=== PATIENT | male | born 1950 | race Caucasian/White ===

== ENCOUNTER 2021-08-27 11:26 | Inpatient (IN) | payer MEDICARE ==
[~2021-08-27] VITALS: Ht 177.8 cm; Wt 90.0 kg
--- NOTE | 2021-08-27 11:26 | NUR ---
PT BROUGHT OVER FROM IV THERAPY WITH LOW SATS IN THE MID 80'S BY THIS NURSE TO ER BED 16 AT THIS TIME. KRISTIN RN AND BRANDON RN BOTH NOTIFIED OF PT STATUS.
[2021-08-27 12:53] LABS: HEMATOCRIT 53.8 % (39.0-50.0); HEMOGLOBIN 17.5 g/dl (14.0-18.0); MEAN CELL VOLUME 91.7 fL CALC (80.0-100.0); MEAN CORPUSCULAR HGB 29.8 pG CALC (26.0-32.0); MEAN CORPUSCULAR HGB CONC 32.5 g/dL CAL (32.0-36.0); NEUT# 4.65 thou/uL (1.82-7.42); RED BLOOD COUNT 5.87 mill/uL (4.70-6.10); RED CELL DISTRI WIDTH 13.4 % (11.5-15.5)
[2021-08-27 13:05] LABS: D-DIMER 0.88 mg/L (0.19-0.60)
[2021-08-27 13:08] LABS: ALBUMIN 3.8 g/dL (3.2-5.0); ALKALINE PHOSPHATASE 99 u/l (38-126); ANION GAP 18 (6-22 (CALC)); BILIRUBIN, TOTAL 0.5 mg/dL (0.0-1.4); BUN 41 mg/dL (8-23); BUN/CREATININE RATIO 35 (12-20 (CALC)); CARBON DIOXIDE 23 mmol/l (22-30); CHLORIDE 99 mmol/l (95-108); CREATININE 1.2 mg/dL (0.7-1.3); GFR 60 ML/MIN (>=60 (CALC)); GFR FOR AFR.AMER. > 60 ML/MIN (>=60 (CALC)); LIPASE 52 u/l (23-300); MAGNESIUM 1.5 mg/dL (1.6-2.3); POTASSIUM 4.5 mmol/l (3.5-5.1); SGOT/AST 69 u/l (19-48); SODIUM 135 mmol/l (137-146); TOTAL PROTEIN 7.1 g/dL (6.3-8.2)
[2021-08-27 13:10] LABS: ACT PARTIAL THROMBO TIME 27.2 SECONDS (20.0-32.5); PROTHROMBIN TIME 10.5 SECONDS (9.0-12.5)
--- NOTE | 2021-08-27 13:10 | NUR ---
Reassessment of patient completed. No distress noted.
[2021-08-27 13:22] LABS: C-REACTIVE PROTEIN 14.9 mg/dL (0-0.9)
--- NOTE | 2021-08-27 15:21 | NUR ---
NURSING PACKAGE HANDLER CURRENTLY BEDSIDE WITH PATIENT. FOURTH PERSON ATTEMPTING TO PLACE IV CATH FOR CTA.
--- NOTE | 2021-08-27 15:48 | NUR ---
PT PLACED ON 6LPM HFNC PER PT SPO2 AND PO2. PT JOSE MANUEL WELLAT THIS TIME. CARDIOPULMONARY TECHNOLOGIST CHIEF TO MONITOR.
--- NOTE | 2021-08-27 16:12 | NUR ---
REPORT GIVEN TO SALON RECEPTIONIST
[2021-08-27 16:54] LABS: URINE BILIRUBIN - DIPSTICK NEGATIVE (NEGATIVE); URINE BLOOD DIPSTICK NEGATIVE (NEGATIVE); URINE COLOR YELLOW; URINE GLUCOSE - DIPSTICK >=1000 mg/dL (NEGATIVE); URINE KETONE 15 mg/dL (NEGATIVE); URINE LEUK ESTERASE NEGATIVE (NEGATIVE); URINE PH 5.5 (4.5-8.0); URINE PROTEIN - DIPSTICK TRACE mg/dL (NEG-TRACE); URINE SPECIFIC GRAVITY 1.025; URINE UROBILINOGEN - DIPSTICK 0.2 E.U./dL (0.2)
[2021-08-27 16:55] LABS: URINE NITRITE - DIPSTICK NEGATIVE (Negative)
[2021-08-27 17:00] VITALS: BP 152/66
--- NOTE | 2021-08-27 17:00 | NUR ---
patient is a new admit from ER, report was taken from lux morrow. he is a/o x3, able to make needs known to staff. denies pain at this time. 3mm perrla brisk bilateral eyes. dentures top and bottom are in. hard of hearing. normal heart sounds. clear top and slightly bottom diminished lung sounds. distended soft non tender abdomen. active bowel sounds. had a large soft bowel movement when transferred into this room from ER. no edema present at this time. strong equal hand shopping investigator. no arm or leg drifts. strong pulses. stable on his feet when ambulating to the bathroom. on isolation precautions. vital signs are stable. continues to be on 6L hfnc. safety measures in place. call light in reach. will continue to monitor per hospital's policy.
--- NOTE | 2021-08-27 18:43 | NUR ---
PATIENT IS EATING DINNER AT THIS TIME WATCHING A FOOTBALL GAME.
--- NOTE | 2021-08-27 18:50 | NUR ---
SAUL RECEIVED FROM REBECCA SCHULZ.
[2021-08-27 19:29] VITALS: BP 134/73
--- NOTE | 2021-08-27 19:35 | NUR ---
ASSESSMENT COMPLETE. PATIENT RESTING QUIETLY IN BED. VSS. NO DISTRESS NOTED. DENIES PAIN AT THIS TIME BUT VERBALIZES FEELING NAUSEATED. IV ROCEPHIN COMPLETE, SITE FLUSHED; PATENT. BED IN LOW POSITION, LOCKED. CALL LIGHT WITHIN REACH. INSTRUCTED TO CALL FOR ASSISTANCE.
--- NOTE | 2021-08-27 22:59 | NUR ---
MAGNESIUM INFUSION COMPLETE. PATIENT RESTING QUIETLY. NO CONCERNS EXPRESSED AT THIS TIME CALL LIGHT WITHIN REACH.
[2021-08-28] VITALS (10 sets, daily range): BP systolic 96–136; BP diastolic 47–69
--- NOTE | 2021-08-28 02:15 | NUR ---
SATURATION DOWN TO 83% ON 6L/NC. OXYGEN INCREASED TO 8L/NC, SATURATION JESSICA TO 91%. NO SIGNS OF DISTRESS NOTED. PATIENT RESTING QUIETLY IN BED EYES CLOSED. WILL CONTINUE TO MONITOR.
--- NOTE | 2021-08-28 04:35 | NUR ---
PATIENT CONTINUES TO REST, SATURATION 88% ON 8L. NO DISTRESS NOTED. VSS. DENIES PAIN AT THIS TIME. CALL LIGHT WITHIN REACH.
[2021-08-28 05:02] LABS: HEMATOCRIT 49.8 % (39.0-50.0); HEMOGLOBIN 16.3 g/dl (14.0-18.0); IMMATURE GRANULOCYTES 0.4 % (0.0-5.0); MEAN CELL VOLUME 91.4 fL CALC (80.0-100.0); MEAN CORPUSCULAR HGB 29.9 pG CALC (26.0-32.0); MEAN CORPUSCULAR HGB CONC 32.7 g/dL CAL (32.0-36.0); NEUT# 3.91 thou/uL (1.82-7.42); RED BLOOD COUNT 5.45 mill/uL (4.70-6.10); RED CELL DISTRI WIDTH 13.5 % (11.5-15.5)
[2021-08-28 05:26] LABS: ALBUMIN 3.3 g/dL (3.2-5.0); ALKALINE PHOSPHATASE 70 u/l (38-126); BILIRUBIN, TOTAL 0.6 mg/dL (0.0-1.4); BUN 40 mg/dL (8-23); BUN/CREATININE RATIO 42 (12-20 (CALC)); C-REACTIVE PROTEIN 7.8 mg/dL (0-0.9); CARBON DIOXIDE 22 mmol/l (22-30); CHLORIDE 104 mmol/l (95-108); GFR > 60 ML/MIN (>=60 (CALC)); GFR FOR AFR.AMER. > 60 ML/MIN (>=60 (CALC)); SGOT/AST 75 u/l (19-48); SODIUM 135 mmol/l (137-146); TOTAL PROTEIN 6.5 g/dL (6.3-8.2)
[2021-08-28 05:29] LABS: ANION GAP 15 (6-22 (CALC)); POTASSIUM 5.6 mmol/l (3.5-5.1)
--- NOTE | 2021-08-28 07:00 | NUR ---
ASSUMED CARE OF PT FROM REBECCA KANG. NO S/S OF DISTRESS NOTED, VSS.
--- NOTE | 2021-08-28 07:25 | NUR ---
PROVIDED BREAKFAST TRAY, MEDICATED PER EMAR, DENIES ANY CURRENT NEEDS. NO S/S OF DISTRESS NOTED
--- NOTE | 2021-08-28 09:24 | NUR ---
ROUNDING AT BEDSIDE
[2021-08-28] MEDS ORDERED: METFORMIN HCL1000 MG PO (10:14)
[2021-08-28] MEDS ORDERED: FISH OIL1000 MG PO (10:14)
[2021-08-28] MEDS ORDERED: KAPSPARGO SPRI100 MG PO (10:15)
[2021-08-28] MEDS ORDERED: LIPITOR40 M1 PO (10:16)
[2021-08-28] MEDS ORDERED: TAMSULOSIN HCL0.4 MG PO (10:16)
[2021-08-28] MEDS ORDERED: JARDIANCE10 MG PO (10:18)
[2021-08-28] MEDS ORDERED: ENTRESTO 49-511 TAB PO (10:18)
[2021-08-28] MEDS ORDERED: HYDRO PO (10:21)
[2021-08-28] MEDS ORDERED: SPIRONOLACTONE PO (10:21)
[2021-08-28] MEDS ORDERED: PRESERVISION AREDS 2 PO (10:25)
[2021-08-28] MEDS ORDERED: ASPIRIN81 MG PO (10:26)
[2021-08-28] MEDS ORDERED: NOVOLOG FL100 UNIT/M (10:28)
[2021-08-28] MEDS ORDERED: LATANOPROST0.005 % OU (10:28)
--- NOTE | 2021-08-28 11:20 | NUR ---
PROVIDED LUNCH TRAY, MEDICATED PER EMAR, NO S/S OF DISTRESS NOTED, DENIES ANY CURRENT NEEDS
--- NOTE | 2021-08-28 13:00 | NUR ---
PT RESTING IN BED, DENIES NEEDS, NO S/S OF DISTRESS NOTED
--- NOTE | 2021-08-28 15:00 | NUR ---
DENIES NEEDS, NO S/S OF DISTRESS NOTED
--- NOTE | 2021-08-28 17:20 | NUR ---
DINNER TRAY PROVIDED, PT SITTING ON SIDE OF BED, MEDICATED PER EMAR, DENIES ANY NEEDS
--- NOTE | 2021-08-28 19:10 | NUR ---
SBAR REPORT RECEIVED FROM REBECCA FAITH. PATIENT AWAKE IN BED PLAYING ON PHONE. BED IN LOW POSITION, LOCKED. CALL LIGHT WITHIN REACH.
--- NOTE | 2021-08-28 21:01 | NUR ---
ASSESSMENT COMPLETE. VSS. SATURATION IN MID 80'S ON 8L/NC HIGH FLOW. PATIENT PROVIDED INCENTIVE SPIROMETRY AND GIVEN VERBAL INSTRUCTION ON USE. PATIENT DEMONSTRATE USE OF EQUIPMENT. NO DISTRESS NOTED. PATIENT VERBALIZES HE FEELS FINE AND IS NOT SHORT WINDED. REPOSITIONED IN BED TO LEFT SIDE TO FACILITATE BREATHING. NO C/O PAIN AT THIS TIME. BED IN LOW POSITION, LOCKED. CALL LIGHT WITHIN REACH, INSTRUCTED TO CALL FOR ASSISTANCE.
--- NOTE | 2021-08-28 21:36 | NUR ---
PATIENT LYING IN BED SATURATION DROPS TO 84%, OXYGEN INCREASED TO 9L/NC. WILL CONTINUE TO MONITOR.
--- NOTE | 2021-08-28 21:49 | NUR ---
SATURATION REMAINS 83-84%. OXYGEN INCREASED TO 10L/NC, SATURATION JESSICA TO 86%. NO DISTRESS NOTED. PATIENT DENIES FEELING SHORT OF BREATH AT THIS TIME. WILL CONTINUE TO MONITOR. CALL LIGHT WITHIN REACH.
[2021-08-29] VITALS (17 sets, daily range): BP systolic 103–143; BP diastolic 46–86
--- NOTE | 2021-08-29 00:16 | NUR ---
SATURATION REMAINS LOW TO MID 80'S. RESPIRATORY THERAPIST AT BEDSIDE. REQUEST FOR PATIENT TO LAY PRONE, PATIENT STATES HE DOESN'T TOLERATED LAYING ON BELLY WELL BUT WILL TRY. OXYGEN INCREASED TO 14L/NC, SATURATION SLOWLY JESSICA TO 90%. PATIENT STATES HE IS OKAY IN THE PRONE POSITION FOR NOW. NO DISTRESS NOTED. CALL LIGHT WITHIN REACH, WILL CONTINUE TO MONITOR.
[2021-08-29 05:10] LABS: HEMATOCRIT 54.4 % (39.0-50.0); HEMOGLOBIN 16.9 g/dl (14.0-18.0); IMMATURE GRANULOCYTES 0.4 % (0.0-5.0); MEAN CELL VOLUME 96.5 fL CALC (80.0-100.0); MEAN CORPUSCULAR HGB CONC 31.1 g/dL CAL (32.0-36.0); NEUT# 8.05 thou/uL (1.82-7.42); RED BLOOD COUNT 5.64 mill/uL (4.70-6.10); RED CELL DISTRI WIDTH 13.5 % (11.5-15.5)
--- NOTE | 2021-08-29 05:33 | NUR ---
RESTING IN BED, PRONE POSITION. SATURATION 89% ON 15L/NC HIGH FLOW.
[2021-08-29 05:58] LABS: ALBUMIN 3.3 g/dL (3.2-5.0); ALKALINE PHOSPHATASE 89 u/l (38-126); ANION GAP 13 (6-22 (CALC)); BILIRUBIN, TOTAL 0.5 mg/dL (0.0-1.4); BUN 42 mg/dL (8-23); BUN/CREATININE RATIO 46 (12-20 (CALC)); CARBON DIOXIDE 24 mmol/l (22-30); CHLORIDE 109 mmol/l (95-108); CREATININE 0.9 mg/dL (0.7-1.3); GFR > 60 ML/MIN (>=60 (CALC)); GFR FOR AFR.AMER. > 60 ML/MIN (>=60 (CALC)); POTASSIUM 4.7 mmol/l (3.5-5.1); SGOT/AST 57 u/l (19-48); SODIUM 141 mmol/l (137-146); TOTAL PROTEIN 6.6 g/dL (6.3-8.2)
--- NOTE | 2021-08-29 06:45 | NUR ---
ASSUMED CARE OF PT FROM REBECCA KANG. PT RESITNG IN BED ON 15L HI FLOW NC, NO S/S OF DISTRESS NOTED.
--- NOTE | 2021-08-29 07:50 | NUR ---
RT AT BEDSIDE PLACING PT ON VAPOTHERM. PT UNABLE TO MAINTAIN SATS ABOVE 85% WITH ANY MOVEMENT.
--- NOTE | 2021-08-29 09:30 | NUR ---
MD AT BEDSIDE ROUNDING
--- NOTE | 2021-08-29 09:40 | NUR ---
ASSISTED PT OOB TO RECLINER. LINENS CHANGED, PT ENCOURAGED TO USE I.S. AT LEAST HOURLY. NO S/S OF DISTRESS NOTED, DENIE ANY CURRENT NEEDS
--- NOTE | 2021-08-29 11:37 | NUR ---
PT RESING IN RECLINER, USING I.S. OFTEN, VAPOTHERM AT 35L, NO S/S OF DISTRESS NOTED. PT SPO2 READINGS BETWEEN 88%-92%.
--- NOTE | 2021-08-29 13:50 | NUR ---
PT ASSISTED BACK TO BED AND IS PRONING. NO S/S OF DISTRESS NOTED, DENIES NEEDS
--- NOTE | 2021-08-29 16:20 | NUR ---
SIA COMPLETED. SPOKE WITH PT ABOUT HIS ANXIETY FOR HIS WIFES CONDITION, WHO IS ALSO POSITIVE FOR COVID. ENCOURAGED HIM TO FOCUS ON HIS WELL BEING TO BE ABLE TO GO HOME TO HER.
--- NOTE | 2021-08-29 19:31 | NUR ---
awake. no acute resp diff. desats with ANY exert. o2 cont per vapotherm. groundwater monitoring technician shows sinus rhythm occas pvcs hr 72. #20 lac & #22 rt hand saline locks. po fluids taken well. voids per urinal. fall & air/contact precautions cont. spoke to pt @ length about prone position.
--- NOTE | 2021-08-29 21:15 | NUR ---
assisted to prone position.
[2021-08-30] VITALS (24 sets, daily range): BP systolic 83–159; BP diastolic 41–74
--- NOTE | 2021-08-30 00:30 | NUR ---
stood to void. conts to desat to the 70's with exert. o2 cont.
--- NOTE | 2021-08-30 04:20 | NUR ---
lab here. blood drawn.
[2021-08-30 06:14] LABS: HEMATOCRIT 54.6 % (39.0-50.0); HEMOGLOBIN 17.1 g/dl (14.0-18.0); IMMATURE GRANULOCYTES 0.5 % (0.0-5.0); MEAN CELL VOLUME 95.1 fL CALC (80.0-100.0); MEAN CORPUSCULAR HGB 29.8 pG CALC (26.0-32.0); MEAN CORPUSCULAR HGB CONC 31.3 g/dL CAL (32.0-36.0); NEUT# 8.15 thou/uL (1.82-7.42); RED BLOOD COUNT 5.74 mill/uL (4.70-6.10); RED CELL DISTRI WIDTH 13.5 % (11.5-15.5)
[2021-08-30 06:14] LABS: ALBUMIN 3.2 g/dL (3.2-5.0); ALKALINE PHOSPHATASE 97 u/l (38-126); ANION GAP 15 (6-22 (CALC)); BILIRUBIN, TOTAL 0.5 mg/dL (0.0-1.4); BUN 31 mg/dL (8-23); BUN/CREATININE RATIO 41 (12-20 (CALC)); C-REACTIVE PROTEIN 8.6 mg/dL (0-0.9); CARBON DIOXIDE 23 mmol/l (22-30); CHLORIDE 107 mmol/l (95-108); CREATININE 0.8 mg/dL (0.7-1.3); GFR > 60 ML/MIN (>=60 (CALC)); GFR FOR AFR.AMER. > 60 ML/MIN (>=60 (CALC)); POTASSIUM 4.6 mmol/l (3.5-5.1); SGOT/AST 52 u/l (19-48); SODIUM 141 mmol/l (137-146); TOTAL PROTEIN 6.2 g/dL (6.3-8.2)
--- NOTE | 2021-08-30 06:25 | NUR ---
sitting in chair. pulse ox 88%.
--- NOTE | 2021-08-30 07:00 | NUR ---
ASSUMED CARE OF PT FROM ISMAEL REYNA. PT OOB IN CHAIR, NO S/S OF DISTRESS NOTED.
--- NOTE | 2021-08-30 07:46 | NUR ---
PT SON IN LOBBY REQUESTING PT TRANSFER. RELAYED I WILL HAVE MD CALL HIM DURING ROUNDS.
--- NOTE | 2021-08-30 08:00 | NUR ---
SPOKE WITH SON ON PHONE, GAVE HIM A PT UPDATE, AND ASSURED HIM THAT THE PT WAS RECEIVING ALL THE PROPER AND NECESSARY CARE. ASSURED HIM I WILL PASS ON ALL PT CARE CONCERNS. RE ENFORCED MD WILL CALL HIM DURING ROUNDS.
--- NOTE | 2021-08-30 09:35 | NUR ---
MD AT BEDSIDE ROUNDS
--- NOTE | 2021-08-30 09:49 | NUR ---
CALLED SON FOR MD TO SPEAK TO.
--- NOTE | 2021-08-30 11:07 | NUR ---
PT RESTING IN BED, NO S/S OF DISTRESS NOTED
--- NOTE | 2021-08-30 14:06 | NUR ---
ASSISTED PT WITH COMPLETE BED BATH, SHAVE, AND ORAL CARE. LINENS AND GOWN, AND SOCKS CHANGED.
--- NOTE | 2021-08-30 14:58 | NUR ---
UPDATED SON VIA PHONE.
--- NOTE | 2021-08-30 16:00 | NUR ---
PT RESTING IN BED, NO S/S OF DISTRESS NOTED.
--- NOTE | 2021-08-30 17:30 | NUR ---
PT EATING DINNER, SITTING BEDSIDE. DENIES NEEDS
--- NOTE | 2021-08-30 18:23 | NUR ---
UPDATED SON VIA PHONE
--- NOTE | 2021-08-30 19:00 | NUR ---
REPORT RECEIVED FROM Kareem IVORY RN, CARE OF PT ASSUMED AT THIS TIME.
--- NOTE | 2021-08-30 20:33 | NUR ---
CALL RECEIVED FROM PTS SON. UPDATE ON PTS STATUS PROVIDED.
--- NOTE | 2021-08-30 20:50 | NUR ---
PT POSITIONS PRONE, SPO2 90%.
--- NOTE | 2021-08-30 23:37 | NUR ---
CALL RECEIVED FROM PTS SON. UPDATE ON PTS STATUS PROVIDED.
[2021-08-31] VITALS (22 sets, daily range): BP systolic 102–157; BP diastolic 41–70
--- NOTE | 2021-08-31 00:36 | NUR ---
PT'S SPO2 DROPS WHILE SLEEPING. FIO2 INCREASED TO 90% HUMIDIFIED AT 40L/M ON VAPOTHERM BY Pedro KERR RRT. SPO2 89%. PT IN NO DISTRESS. TOLERATIONG SPO2 AT CURRENT LEVEL.
--- NOTE | 2021-08-31 03:37 | NUR ---
CALL RECEIVED FROM PT'S SON. REPORTS PT CALLED HIM AND EXPRESS CONCERNS OVER INCREASE IN FIO2 ON VAPOTHERM. ALLOWED TIME FOR PT'S SON TO EXPRESS CONCERNS. EDUCATION VERBALLY PROVIDED. QUESTIONS ANSWERED. WENT IN TO SPEAK WITH PT REGARDING HIS CONCERNS. ALLOWED TIME FOR EXPRESSION OF CONCERNS. VERBAL EDUCATION AND REASSURANCE PROVIDED. QUESTIONS ANSWERED. PT ENCOURAGED TO VERBALIZE QUESTIONS OR CONCERNS ANY TIME. PT AGREES. DENIES FURTHE NEEDS AT THIS TIME.
--- NOTE | 2021-08-31 04:27 | NUR ---
Sobia MINOR NEWS BROADCASTER IN ROOM TO COLLECT AM LABS.
[2021-08-31 06:08] LABS: HEMATOCRIT 49.1 % (39.0-50.0); HEMOGLOBIN 16.2 g/dl (14.0-18.0); MEAN CELL VOLUME 91.1 fL CALC (80.0-100.0); MEAN CORPUSCULAR HGB 30.1 pG CALC (26.0-32.0); RED BLOOD COUNT 5.39 mill/uL (4.70-6.10); RED CELL DISTRI WIDTH 13.4 % (11.5-15.5)
[2021-08-31 06:25] LABS: ALBUMIN 3.1 g/dL (3.2-5.0); ALKALINE PHOSPHATASE 102 u/l (38-126); ANION GAP 15 (6-22 (CALC)); BILIRUBIN, TOTAL 0.7 mg/dL (0.0-1.4); BUN 30 mg/dL (8-23); BUN/CREATININE RATIO 40 (12-20 (CALC)); CARBON DIOXIDE 23 mmol/l (22-30); CHLORIDE 107 mmol/l (95-108); CREATININE 0.7 mg/dL (0.7-1.3); GFR > 60 ML/MIN (>=60 (CALC)); GFR FOR AFR.AMER. > 60 ML/MIN (>=60 (CALC)); MAGNESIUM 1.8 mg/dL (1.6-2.3); POTASSIUM 4.8 mmol/l (3.5-5.1); SGOT/AST 40 u/l (19-48); SODIUM 141 mmol/l (137-146); TOTAL PROTEIN 6.1 g/dL (6.3-8.2)
--- NOTE | 2021-08-31 07:00 | NUR ---
ASSUMED CARE OF PT. NO S/S OF DISTRESS NOTED.
--- NOTE | 2021-08-31 08:08 | NUR ---
UPDATED PT SON VIA PHONE
--- NOTE | 2021-08-31 09:00 | NUR ---
ROUNDING AT BEDSIDE
--- NOTE | 2021-08-31 09:40 | NUR ---
MALLORY CATH PLACED PER MD ORDER, PT HAVING DYSPNEA ON EXERTION. PT THEN PLACED IN PRONE POSITION. TOLERATING PRONING WELL
--- NOTE | 2021-08-31 10:28 | NUR ---
UPDATED SON VIA PHONE
--- NOTE | 2021-08-31 12:54 | NUR ---
UPDATED SON VIA PHONE
--- NOTE | 2021-08-31 13:30 | NUR ---
PT PLACED IN PRONE POSTION. NO S/S OF DISTRESS NOTED, DENIES NEEDS, TOLERATING WELL
--- NOTE | 2021-08-31 15:14 | NUR ---
PT STILL IN PRONE POSTION, DENIES NEEDS
--- NOTE | 2021-08-31 15:28 | NUR ---
UPDATED SON VIA PHONE
--- NOTE | 2021-08-31 19:50 | NUR ---
SBAR RECEIVED FROM REBECCA FAITH.
--- NOTE | 2021-08-31 20:20 | NUR ---
ASSESSMENT COMPLETE. PATIENT RESTING COMFORTABLY. NO DISTRESS NOTED. DENIES PAIN AT THIS TIME. SATURATION 84% ON VAPOTHERM 40L @ 90%. BED IN LOW POSITION, LOCKED. CALL LIGHT WITHIN REACH. INSTRUCTED TO CALL FOR ASSISTANCE.
--- NOTE | 2021-08-31 21:00 | NUR ---
PM MEDS GIVEN, TOLERATED WELL. PATIENT ASSISTED TO PRONE POSITION FOR SLEEP, TOLERATING WELL. SATURATION 86-87%, PATIENT DOES NOT DISPLAY SIGNS OF DIFFICULTY BREATHING. NO DISTRESS NOTED. CALL LIGHT WITHIN REACH.
[2021-09-01] VITALS (15 sets, daily range): BP systolic 121–152; BP diastolic 45–68
--- NOTE | 2021-09-01 00:26 | NUR ---
PATIENT RESTING QUIELTY. PATIENT STATES HE'S CHILLY, WARM BLANKET GIVEN FOR COMFORT. DENIES PAIN AT THIS TIME. SATURATION 87% ON VAPOTHERM 40L @ 90%. NO DISTRESS NOTED. NO FURTHER CONCERNS EXPRESSED AT THIS TIME. CALL LIGHT WITHIN REACH, INSTRUCTED TO CALL FOR ASSISTANCE.
--- NOTE | 2021-09-01 04:55 | NUR ---
PATIENT RESTING QUIETLY EYES CLOSED. CALL LIGHT WITHIN REACH.
[2021-09-01 05:44] LABS: HEMATOCRIT 48.7 % (39.0-50.0); HEMOGLOBIN 15.9 g/dl (14.0-18.0); IMMATURE GRANULOCYTES 1.4 % (0.0-5.0); MEAN CELL VOLUME 91.4 fL CALC (80.0-100.0); MEAN CORPUSCULAR HGB 29.8 pG CALC (26.0-32.0); MEAN CORPUSCULAR HGB CONC 32.6 g/dL CAL (32.0-36.0); NEUT# 11.4 thou/uL (1.82-7.42); RED BLOOD COUNT 5.33 mill/uL (4.70-6.10); RED CELL DISTRI WIDTH 13.5 % (11.5-15.5)
[2021-09-01 06:10] LABS: ALBUMIN 2.8 g/dL (3.2-5.0); ALKALINE PHOSPHATASE 102 u/l (38-126); BILIRUBIN, TOTAL 0.6 mg/dL (0.0-1.4); BUN 35 mg/dL (8-23); BUN/CREATININE RATIO 43 (12-20 (CALC)); C-REACTIVE PROTEIN 6.8 mg/dL (0-0.9); CHLORIDE 108 mmol/l (95-108); CREATININE 0.8 mg/dL (0.7-1.3); GFR > 60 ML/MIN (>=60 (CALC)); GFR FOR AFR.AMER. > 60 ML/MIN (>=60 (CALC)); POTASSIUM 4.4 mmol/l (3.5-5.1); SGOT/AST 28 u/l (19-48); SODIUM 141 mmol/l (137-146); TOTAL PROTEIN 5.7 g/dL (6.3-8.2)
[2021-09-01 06:11] LABS: ANION GAP 9 (6-22 (CALC)); CARBON DIOXIDE 28 mmol/l (22-30)
--- NOTE | 2021-09-01 06:22 | NUR ---
pt asleep in bed, laying on side, facing window. no acute distress noted. CPoX signal weak at this time. device processing engineer to monitor.
--- NOTE | 2021-09-01 07:33 | NUR ---
PT REPORT RECEIVED, PT RESTING QUIETLY ON STRETCHER, CALL LIGHT WITHIN REACH. HEART RATE DROPS IN THE 40'S WITH MOVEMENT, BUT BOUNCES BACK UP IN SECONDS.
--- NOTE | 2021-09-01 09:05 | NUR ---
REQUESTING A NON REBREATHER FOR SATS STAYING IN THE MID 80'S
--- NOTE | 2021-09-01 09:22 | NUR ---
DR. ZAVALA SPEAKING WITH SON ABOUT PTS CONDITION.
--- NOTE | 2021-09-01 11:00 | NUR ---
no changes at this time c hhfnc paramters. pt wendy well currently c 100% nrb and documented hhfnc settings. nad. polishing wheel setter to monitor. pt resting comfortably in bed, laying flat c hob elevated.
--- NOTE | 2021-09-01 12:52 | NUR ---
PHYSICAL THERAPY DONE WITH PT. PT HANDLED SITTING ON SIDE OF BED WELL WITHOUT SATS DROPPING PAST 90. AT THIS TIME, PT LAYING ON SIDE IN BED PLAYING ON PHONE, NON REBREATHER AND VAPOTHERM AT 40 PER DOCTOR
--- NOTE | 2021-09-01 16:00 | NUR ---
no changes at this time. cnc supervisor to monitor.
--- NOTE | 2021-09-01 17:31 | NUR ---
PT RESTING QUIETLY ON STRETCHER IN UPRIGHT POSITION WITH VAPOTHERM AT 40L@90% WITH NON REBREATHER PER DR. ZAVALA REQUEST SATS IN THE 90'S. NO COMPLAINTS AT THIS TIME, HAS BEEN ON FACEBOOK MOST OF THE DAY OR WATCHING TV. HAS PRONED OFF AND ON DURING DAY.
--- NOTE | 2021-09-01 18:55 | NUR ---
SAUL RECEIVED FROM REBECCA RAMIREZ.
--- NOTE | 2021-09-01 19:37 | NUR ---
ASSESSMENT COMPLETE. PATIENT STABLE. SATURATION 86% ON VAPOTHERM/NONREBREATHER COMBO. NO DISTRESS NOTED. DENIES PAIN. CALL LIGHT WITHIN REACH.
[2021-09-02] VITALS (16 sets, daily range): BP systolic 114–166; BP diastolic 53–84
--- NOTE | 2021-09-02 00:42 | NUR ---
PATIENT RESTING QUIETLY, AWAKENED BY ALARM OF VAPOTHERM. RESPIRATORY THERAPIST AT BEDSIDE. PATIENT STABLE, NO DISTRESS NOTED. CALL LIGHT WITHIN REACH.
--- NOTE | 2021-09-02 04:45 | NUR ---
RESTING QUIETLY IN BED, LEFT SIDE LYING POSITION. SATURATION 86%, NO DISTRESS NOTED. NO C/O PAIN AT THIS TIME CALL LIGHT WITHIN REACH.
[2021-09-02 05:06] LABS: HEMATOCRIT 50.1 % (39.0-50.0); HEMOGLOBIN 15.9 g/dl (14.0-18.0); IMMATURE GRANULOCYTES 2.9 % (0.0-5.0); MEAN CELL VOLUME 93.6 fL CALC (80.0-100.0); MEAN CORPUSCULAR HGB 29.7 pG CALC (26.0-32.0); MEAN CORPUSCULAR HGB CONC 31.7 g/dL CAL (32.0-36.0); NEUT# 11.65 thou/uL (1.82-7.42); RED BLOOD COUNT 5.35 mill/uL (4.70-6.10); RED CELL DISTRI WIDTH 13.4 % (11.5-15.5)
[2021-09-02 05:22] LABS: ALBUMIN 2.9 g/dL (3.2-5.0); ALKALINE PHOSPHATASE 131 u/l (38-126); ANION GAP 9 (6-22 (CALC)); BUN 34 mg/dL (8-23); BUN/CREATININE RATIO 44 (12-20 (CALC)); CARBON DIOXIDE 29 mmol/l (22-30); CHLORIDE 106 mmol/l (95-108); CREATININE 0.8 mg/dL (0.7-1.3); GFR > 60 ML/MIN (>=60 (CALC)); GFR FOR AFR.AMER. > 60 ML/MIN (>=60 (CALC)); MAGNESIUM 1.8 mg/dL (1.6-2.3); POTASSIUM 4.2 mmol/l (3.5-5.1); SGOT/AST 32 u/l (19-48); SODIUM 140 mmol/l (137-146); TOTAL PROTEIN 6.1 g/dL (6.3-8.2)
--- NOTE | 2021-09-02 15:46 | NUR ---
S: Patient reported feeling about the same as yesterday. O: Patient performed: Bed mobility SBA x 1 Supine to sit SBA x 1 2 x 10 each seated hip flexion 2 x 10 each seated knee extension 2 x 5 sit to stand CGA x 1 Patient O2 sat level decreased to 70% during sit to stand activity but was able to recover to 93% upon rest and verbal cues to breath. A: Patient still is on vapotherm and high flow supplemental O2 but O2 sat still desaturates with activity. Patient will need to improve functional ADLs without desaturation while on supplemental O2 moving forward. P: Patient will continue to need interventions focused on strengthening, endurance, gait training, tolerance to activity, and balance training without desaturation of O2 sat. Patient's Am Pac score on this date is 11 which would be a recommedation for an extended care facility. I agree with this recommendation at this time due to the patient requiring vapotherm and high flow supplemental O2 and still desaturating.
--- NOTE | 2021-09-02 18:16 | NUR ---
pt c nad. resting on left side, using cellular phone, no changes in respiratory parameters at this time. gear tooth grinding machine operator to monitor.
--- NOTE | 2021-09-02 19:20 | NUR ---
pt awake in bed; no apparent distress noted; pt offers no complaints; pt very [place]; assessment completed at this time; pt alert and oriented; denies pain; no n/v noted; resp even and unlabored; lungd clear/ diminished bases; skin color wnl; o2 per vapotherm at 40L and 100% FiO2; 100% NRB over vapotherm; bridge contractor cough noted; hr reg; strong pulses; no edema noted; sr on monitor; abd soft with bs present; sm formed brown bm noted per senior technical writer to bsc; heaton emptied for [place]/ blood tinged urine; cath strap intact; #20 noted dislodged from lac with catheter tip intact; #20 patent to lfa with abt infusing without complication; no redness or edema noted at site; plan of care/ pm meds explained; proning explained; call light within reach; will continue to monitor
--- NOTE | 2021-09-02 19:51 | NUR ---
Dr Holloway called this service writer; update provided; informed of o2 sat in low 80%; vapo/nrb to be continued;
--- NOTE | 2021-09-02 20:08 | NUR ---
awake in bed lying on right side; no distress noted; vapo/nrb intact; heaton to gravity; sr on monitor; will continue to monitor
--- NOTE | 2021-09-02 20:30 | NUR ---
pt noted sitting on the side of the bed; o2 sat 45%; vapotherm and NRB reapplied per staff correctly; deep breathing tech explained; pt proned per staff; o2 sat up to 75%; MD to be notified; RT summoned to room;
--- NOTE | 2021-09-02 20:48 | NUR ---
Dr Holloway called per senior mortgage underwriter; informed of desat to 45%; pt proned with o2 sat removery to 75%; pt with labored resp; admits to feeling as if not getting enough air; spoke with MD; cpap/bipap to be initiated for o2 sat less than 84% sustained; plan of care explained to RT [place] and pt; will continue to monitor closely
--- NOTE | 2021-09-02 21:50 | NUR ---
Dr Holloway called this remote mortgage underwriter; updated provided; informed of hypoxia; o2 sat 81-82%; no swelling noted per remote mortgage underwriter; cxr to be done in am; vapotherm/nrb to be continued; will continue to monitor closely
--- NOTE | 2021-09-02 22:00 | NUR ---
Dr Holloway called this poem writer; orders have been placed
--- NOTE | 2021-09-02 22:09 | NUR ---
return call placed to sangita Ratliff; passcode verified; detail update on events this evening explained; plan of care explained; will continue to monitor
--- NOTE | 2021-09-02 22:43 | NUR ---
informed Pulmicort unavailable;
--- NOTE | 2021-09-02 23:14 | NUR ---
heaton emptied for 800cc urine post lasix admin
[2021-09-03] VITALS (20 sets, daily range): BP systolic 105–168; BP diastolic 53–87
--- NOTE | 2021-09-03 00:16 | NUR ---
resting in bed on left side; no distress noted; vapo/nrb intact; heaton to gravity; will continue to monitor
--- NOTE | 2021-09-03 02:04 | NUR ---
resting on left side with eyes closed; easily aroused; offers no complaints; iv intact; heaton to gravity; sr/pvc on monitor; vapo/nrb maintained; will continue to monitor
--- NOTE | 2021-09-03 04:15 | NUR ---
awake in bed; admits to dry chapped lips; lip balm applied; vapo/nrb continued; heaton to gravity; sr/pvc on monitor; will continue to monitor
--- NOTE | 2021-09-03 04:27 | NUR ---
sangita Ratliff called this film writer; update provided; will continue to monitor
--- NOTE | 2021-09-03 06:07 | NUR ---
awake in bed; offers no complaints; no distress noted; sr/pvc on monitor; heaton to gravity; vapo/nrb combo continued; call light within reach
[2021-09-03 06:11] LABS: HEMATOCRIT 51.7 % (39.0-50.0); IMMATURE GRANULOCYTES 1.9 % (0.0-5.0); MEAN CELL VOLUME 90.5 fL CALC (80.0-100.0); MEAN CORPUSCULAR HGB 29.8 pG CALC (26.0-32.0); MEAN CORPUSCULAR HGB CONC 32.9 g/dL CAL (32.0-36.0); NEUT# 12.99 thou/uL (1.82-7.42); RED BLOOD COUNT 5.71 mill/uL (4.70-6.10); RED CELL DISTRI WIDTH 13.2 % (11.5-15.5)
[2021-09-03 06:40] LABS: ALBUMIN 3.1 g/dL (3.2-5.0); ALKALINE PHOSPHATASE 151 u/l (38-126); ANION GAP 11 (6-22 (CALC)); BILIRUBIN, TOTAL 0.9 mg/dL (0.0-1.4); BUN 33 mg/dL (8-23); BUN/CREATININE RATIO 40 (12-20 (CALC)); C-REACTIVE PROTEIN 3.3 mg/dL (0-0.9); CARBON DIOXIDE 29 mmol/l (22-30); CHLORIDE 102 mmol/l (95-108); CREATININE 0.8 mg/dL (0.7-1.3); GFR > 60 ML/MIN (>=60 (CALC)); GFR FOR AFR.AMER. > 60 ML/MIN (>=60 (CALC)); POTASSIUM 4.2 mmol/l (3.5-5.1); SGOT/AST 31 u/l (19-48); SODIUM 137 mmol/l (137-146); TOTAL PROTEIN 6.3 g/dL (6.3-8.2)
--- NOTE | 2021-09-03 07:17 | NUR ---
pt report received , no complaints, states he feels slightly better, advised son had called for update.
--- NOTE | 2021-09-03 08:18 | NUR ---
pt up to commode and then helped pt obtain a bath, sats dropped but came back up to the low 90's, after being placed in recliner, pt did well on standing and moving around
--- NOTE | 2021-09-03 09:44 | NUR ---
PT SITTING UP IN RECLINER SATS 91%, TALKING WITH
--- NOTE | 2021-09-03 11:26 | NUR ---
CHEST XRAY SHOWING CHANGES IN LEFT LUNG, DR. THOMPSON STATES TO EITHER HAVE PT SIT UP OR LAY ON RIGHT SIDE TO SEE IF THERE IS A DIFFERENCE
--- NOTE | 2021-09-03 14:01 | NUR ---
PT RESTING QUIETLY ON STRETCHER, NO DISTRESS NOTED, REMDESIVER INFUSING. SATS 91%
--- NOTE | 2021-09-03 15:36 | NUR ---
Physical Therapist tried to carry out PT intervention today, but patient refused services, states that he doen't feel well today (oxygen saturation fluctuating between 85% to 89% and nurse was made aware of it).
--- NOTE | 2021-09-03 20:00 | NUR ---
PATIENT RESTING IN BED ON ROUNDS IN SEMI-FOWLERS POSITION. PATIENT ABLE TO CONVERSE AND DOES NOT APPEAR TO BE DSYPNEIC. O2 SATS LOW 80'S AND DROP INTO THE 70'S WITH ANY TYPE OF MOVEMENT BY PATIENT. ENCOURAGE TO PRONE OR LIE ON LEFT SIDE. O2 ON VAPOTHERM 40 L/100% AND NRB MASK. BREATH SOUNDS DIMINISHED THROUGHOUT LUNG AVENDANO. SALINE LOCK INTACT IN RFA, SITE BENIGN, FLUSHED AND PATENT. MALLORY DRAINS CLEAR YELLOW URINE. TRACE PEDAL EDEMANOTED BILATERALLY. FREELANCE ART DIRECTOR SHOWS SR WITH PVC'S AND COUPLETS.
--- NOTE | 2021-09-03 20:30 | NUR ---
HS ACCU CHECK 159, COVERED PER PROTOCOL.
--- NOTE | 2021-09-03 21:30 | NUR ---
PATIENT CHRIST ALLRED PHONED FOR CONDITION UPDATE, PASSCODE PROVIDED AND UPDATE GIVEN.
--- NOTE | 2021-09-03 22:00 | NUR ---
VSS. O2 SATS UP AND DOWN UPPER 70'S-MID 80'S. DR RAMIREZ UPDATED EARLIER.
--- NOTE | 2021-09-03 22:30 | NUR ---
PATIENT RESTLESS, SITTING UP AT SIDE OF BED. ASSISTED UP TO RECLINER. MEDICATED WITH SONATA ORDERED FOR SLEEP.
[2021-09-04] VITALS: BP 140/70
--- NOTE | 2021-09-04 00:30 | NUR ---
PATIENT ASSISTED BACK TO BED AND RESTING IN PRONE POSITION. O2 SATS BRIEFLY INCREASED TO 89% THEN BACK TO VARYING BETWEEN LOW 80'S TO UPPER 70'S, RR 22-28. PATIENT ST HR 110'S WITH ACTIVITY AT REST HR 50'S-70'S. PATIENT COOPERATIVE WITH CARE. CALL ALVAREZ IN REACH.
[2021-09-04 01:00] VITALS: BP 109/51
--- NOTE | 2021-09-04 01:40 | NUR ---
PATIENT REPOSITONED FROM PRONE POSITION TO SUPINE. HR 110'S.
--- NOTE | 2021-09-04 01:40 | NUR ---
0128-DR RAMIREZ INFORMED OF PATIENT . 0131-PATIENT SON CHALINO WAYNE INFORMED OF PATIENT . 0139-[employer] CALLED, SPOKE WITH AYLA-PATIENT DECLINED FOR DONATION D/T COVID+. REFERENCE [id number].
--- NOTE | 2021-09-04 01:45 | NUR ---
(OCCURRRED WHILE STILL ON DAYLIGHT SAVING TIME) PATIENT LEONARDO DOWN TO THE 30'S. NURSES AND RT IMMEDIATELY ENTERED ROOM. PATIENT FOUND WITH NRB MASK OFF. NO RESP EFFORT. CODE BLUE CALLED. SEE CODE BLUE SHEET.
--- NOTE | 2021-09-04 02:00 | NUR ---
OBTAINED ROSC. PATIENT PLACED ON VENT BY RT.
--- NOTE | 2021-09-04 02:08 | NUR ---
VFIB NOTED ON MONITOR, PULSELESS. CODE BLUE CALLED.
== END 2021-09-04 02:23 | disposition expired | DRG 208 ==
LOC: ED 11:26 → ED-I 12:17 → ED 12:17 → ED-I 13:49 → ED 14:00 → ICU 14:01
PROVIDERS: Internal Medicine; Nurse Practitioner; ADMIT Hospitalist; ATTEND Hospitalist
PROC: XW033E5 Introduction of Remdesivir Anti-infective into Peripheral Vein, Percutaneous Approach, New Technology Group 5 (ICD-10-PCS; principal; 2021-08-27)
PROC: 0T9B70Z Drainage of Bladder with Drainage Device, Via Natural or Artificial Opening (ICD-10-PCS; 2021-08-31)
PROC: XW033H5 Introduction of Tocilizumab into Peripheral Vein, Percutaneous Approach, New Technology Group 5 (ICD-10-PCS; 2021-09-01)
PROC: 5A1935Z Respiratory Ventilation, Less than 24 Consecutive Hours (ICD-10-PCS; 2021-09-04)
PROC: 0BH17EZ Insertion of Endotracheal Airway into Trachea, Via Natural or Artificial Opening (ICD-10-PCS; 2021-09-04)
PROC: 5A12012 Performance of Cardiac Output, Single, Manual (ICD-10-PCS; 2021-09-04)
PROC: 5A12012 Performance of Cardiac Output, Single, Manual (ICD-10-PCS; 2021-09-04)
DX: U07.1 COVID-19 (principal); J12.82 Pneumonia due to coronavirus disease 2019; J96.01 Acute respiratory failure with hypoxia; I50.22 Chronic systolic (congestive) heart failure; I11.0 Hypertensive heart disease with heart failure; I46.9 Cardiac arrest, cause unspecified; E11.9 Type 2 diabetes mellitus without complications; E87.5 Hyperkalemia; I25.10 Atherosclerotic heart disease of native coronary artery without angina pectoris; F41.9 Anxiety disorder, unspecified; Z95.1 Presence of aortocoronary bypass graft; Z79.84 Long term (current) use of oral hypoglycemic drugs
CPT/HCPCS: J0282; J1650; J3262; J3475; J7626; Q3014; Q9967